=== PATIENT | female | born 1970 | race Caucasian/White ===

== ENCOUNTER 2024-06-07 18:11 | Emergency (ER) | payer MEDICAID ==
[~2024-06-07] VITALS: Ht 160 cm; Wt 46.8 kg
[2024-06-07] MEDS ORDERED: CEPH-585 PO (19:42)
[2024-06-07 19:56] VITALS: BP 146/81; PULSE 72; RESP 16; TEMP 97.6; O2SAT 98
== END 2024-06-07 19:58 | disposition home or self-care (01) ==
LOC: ER 18:12
DX: S90.822A Blister (nonthermal), left foot, initial encounter (principal); X58.XXXA Exposure to other specified factors, initial encounter; Y93.89 Activity, other specified; Y92.89 Other specified places as the place of occurrence of the external cause; Y99.8 Other external cause status
CPT/HCPCS: 99283

== ENCOUNTER 2025-03-21 13:53 | Inpatient (IN) | payer MEDICAID ==
[~2025-03-21] VITALS: Ht 160 cm; Wt 45.5 kg
--- NOTE | 2025-03-21 14:14 | Physician Documentation ---
History of Present Illness ~ Chief Complaint: Wound Stated Complaint: R FOOT PAIN Time Seen by MD: 14:57 HPI This 54-year-old female presents with a painful blister to the lateral aspect of her right foot and ankle as well as a wound to the posterior aspect of her right ankle, patient reports that it is been present for several days and getting larger. Patient reports the bottom of her foot has been hurting for the last week she believes she may have stepped on something a week ago. Patient reports no fevers. Patient reports that she has been sleeping a lot in the last two days as she is detoxing from methamphetamine. Medication Reconciliation Allergies: Coded Allergies: No Known Allergies (Unverified , 03/21/25) Review of Systems ROS Right foot pain and swelling as stated above in the HPI, otherwise all systems are reviewed and negative. Physical Exam Vital Signs: Temperature: 98.0, Source: Temporal, Heart Rate: 112, Respiratory Rate: 18, BP: 155/103, Pulse Oximetry: 100, Weight: 45.450 Physical Exam VITALS: Reviewed and as above. GENERAL: Alert, nontoxic appearing, no apparent distress. RESPIRATORY: No increased work of breathing, no respiratory distress, speaking in full clear sentences SKIN: Large bolus blister to the lateral aspect of right foot extending to the plantar heel EXTREMITIES: Foot is erythematous and swollen, blister is tender to palpation Progress Progress Note 1738: I spoke with hospitalist attending Dr. Acuna who kindly accepts patient for admission, Dr. Acuna requests a CT of the lower extremity be ordered and I contact on-call surgeon to make them aware should patient require surgical debridement 1744: I spoke with on-call orthopedist Dr. Stephens who was aware of patient and will consult with hospitalist in the morning Results/Orders Results/Orders Orders - DONALDO JOHNSTON Laceration/I&D Tray Set Up (03/21/25 15:45) Foot, Complete (3vw Min) (03/21/25 15:47) Culture Blood (03/21/25 16:08) Chest,Single View (03/21/25 16:08) Page Hospitalist (03/21/25 16:19) Fill Out Med Reconciliation (03/21/25 16:19) Ct Lower Extremity (03/21/25 19:05) Completed Orders - JEANNINE,DONALDO W [facility] Ketorolac Trometh 15mg/Ml Vial (Toradol (03/21/25 15:40) Tetanus/Pertuss/Diph Acell/Pf (Boostrix (03/21/25 15:45) Foot, Complete (3vw Min) (03/21/25 15:47) Cbc/Diff (03/21/25 15:47) BMP (03/21/25 15:47) Lidocaine 1% W/Epi 1:100,000 (Xylocaine (03/21/25 15:45) Electrocardiogram (03/21/25 16:08) Chest,Single View (03/21/25 16:08) Hcg, Ur Ql (03/21/25 16:08) Procalcitonin (03/21/25 16:08) Vancomycin*Pharmacy To Dose* (Vancomycin (03/21/25 16:10) Lacticsepsis (03/21/25 16:08) Ceftriaxone/M1z-Fscywlpv 1gm (Rocephin 1 (03/21/25 16:10) Vancomycin 1250mg/Ns 250ml Bag (Vancomyc (03/21/25 16:25) MG (03/21/25 16:12) Ct Lower Extremity (03/21/25 19:05) Lactic,2hr (03/21/25 18:03) Hgb A1c (03/21/25 16:12) PBNP (03/21/25 16:12) PHOS (03/21/25 16:12) Ua W/Microscopic, Cult If Ind (03/21/25 18:15) Medications Received in ER Medications (Trade) Dose Ordered Sig/Vipul Route PRN Reason Start Time Stop Time Status Last Admin Dose Admin (Dilaudid inj.) 0.5 mg Q4H PRN IV SEVERE PAIN 7-10 03/21/25 18:15 03/21/25 22:52 0.5 MG (Zofran 4mg/2ml vial) 4 mg Q6H PRN IV nausea/vomiting 03/21/25 18:15 03/21/25 18:47 4 MG (Benadryl inj.) 25 mg Q6H PRN IV itching 03/21/25 18:15 03/22/25 00:31 25 MG Potassium Chloride/Sodium Chloride 1,000 ml @ 100 mls/hr Q10H IV 03/21/25 18:15 03/21/25 18:55 100 MLS/HR (K-DUR tablet) 20 meq Q4H PRN PO Potassium 3.1-3.4 03/21/25 18:15 03/24/25 18:14 03/21/25 21:10 20 MEQ Vital Signs 03/21/25 03/21/25 14:05 15:48 Temp 98.0 Pulse 112 Resp 18 16 B/P (MAP) 155/103 Pulse Ox 100 Laboratory Tests Test 03/21/25 16:12 03/21/25 18:15 White Blood Count 10.8 Red Blood Count 5.09 Hemoglobin 14.0 Hematocrit 42.8 Mean Corpuscular Volume 84.1 Mean Corpuscular Hemoglobin 27.6 Mean Corpuscular Hemoglobin Concent 32.8 L Red Cell Distribution Width 13.8 Platelet Count 299 Mean Platelet Volume 7.7 Neutrophils (%) (Auto) 84.9 H Lymphocytes (%) (Auto) 9.5 L Monocytes (%) (Auto) 4.9 Eosinophils (%) (Auto) 0.5 Basophils (%) (Auto) 0.2 Neutrophils # (Auto) 9.2 H Lymphocytes # (Auto) 1.0 L Monocytes # (Auto) 0.5 Eosinophils # (Auto) 0.1 Basophils # (Auto) 0.0 CBC Comment Prothrombin Time 11.0 INR International Normalized Ratio 1.1 Activated Partial Thromboplast Time 26 Coagulation Comments Sodium Level 141 Potassium Level 3.2 L Chloride Level 102 Carbon Dioxide Level 28.6 Anion Gap 10 Blood Urea Nitrogen 11 Creatinine 0.83 Estimated GFR/1.73 m2 72 BUN/Creatinine Ratio 13.3 Glucose Level 132 H Hemoglobin A1c 5.6 Lactic Acid Level 3.4 H Calcium Level 8.8 Phosphorus Level 2.9 Magnesium Level 2.1 Pro-B-Type Natriuretic Peptide 185 H Albumin 2.8 L Procalcitonin < 0.05 Chemistry Comments Urine Specimen Description Cln catch midstream Urine Color Yellow Urine Clarity Turbid Urine pH 6.0 Urine Specific [place] >=1.030 Urine Protein 30 H Urine Glucose (UA) 100 H Urine Ketones Trace H Urine Occult Blood Moderate H Urine Nitrite Negative Urine Bilirubin Moderate Urine Urobilinogen >=8.0 H Urine Leukocyte Esterase Moderate H Urine RBC 3-10 Urine WBC 30-50 H Urine Squamous Epithelial Cells Few Urine Bacteria 4+ Urine Culture Indicated Indicated Volume Urine Centrifuged 10 ml Urine HCG, Qualitative Negative Urine Comment Urine Opiates Screen Negative Urine Methadone Screen Negative Urine Fentanyl Screen Negative Urine Barbiturates Screen Negative Urine Phencyclidine Screen Negative Urine Amphetamines Screen Positive Urine Benzodiazepines Screen Negative Urine Cocaine Screen Negative Urine Cannabinoids Screen Negative Drug Screen Comment Microbiology Date/Time Source Procedure Growth Status 03/21/25 17:22 Blood Arm Left Blood Culture - Preliminary NEGATIVE (LESS THAN 24 HOURS) Resulted EKG/XRAY/CT/US/VASC/MRI EKG : Additional Comment EKG at 16:33 interpreted by myself as sinus tachycardia at a rate of 101, left axis deviation, no ST segment elevation or depression Chest X-Ray : Additional Comments EXAM: DI CHEST,SINGLE VIEW HISTORY: SEPSIS COMPARISON: None TECHNIQUE: Portable upright AP view of the chest was performed. FINDINGS: No pneumothorax, consolidative infiltrates, or pulmonary edema. The heart is not enlarged. There is an old fracture of the right 6th rib. IMPRESSION: No acute intrathoracic process. Electronically Signed by:CHIQUI TONG MD Date & Time: 03/21/251635 Dictated by: CHIQUI TONG MD Dictation date and time: 03/21/251635 I have reviewed and agree with the radiology report. I have reviewed and interpreted the imaging as: No focal consolidation or pneumothorax Bone/Soft Tissue X-Ray (Ext.) : Additional Comment EXAM: DI FOOT, COMPLETE (3VW MIN) HISTORY: Wound to RT.Foot POSSIBLE FB COMPARISON: None TECHNIQUE: Three views of the right foot were performed. FINDINGS: No acute fracture or dislocation are identified about the right foot. Accessory navicular bone and Achilles insertion enthesophyte are incidentally noted. 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 There is soft tissue masslike lesion along the lateral margin of the midfoot and hindfoot, measuring 5.7 cm longitudinal on the AP film. There is a punctate round calcific density deep to the skin in the region of the masslike lesion. IMPRESSION: 1. No acute fracture of the right foot. 2. Soft tissue masslike lesion along the lateral margin of the right midfoot and hindfoot, etiology unknown. Electronically Signed by:CHIQUI TONG MD Date & Time: 03/21/251615 Dictated by: CHIQUI TONG MD Dictation date and time: 03/21/251615 I have reviewed and agree with the radiology report. I have reviewed and interpreted the imaging as: No radiopaque foreign body, no fracture or dislocation Medical Decision Making Findings This 54-year-old female presented with a bullous blister to her right lateral ankle extending into her plantar aspect of right heel that has been progressively worsening over the past 3-4 days, the entire right foot is eryt hematous and swollen consistent with cellulitis, patient was mildly tachycardic causing some concern for sepsis, given the large bullous nature of the wound I believe patient would benefit from admission for IV antibiotics. It is reassuring that the infection appears limited to the right foot patient has an otherwise benign physical exam. In discussion with hospitalist Dr. Acuna a CT of the lower extremity was ordered to evaluate for deep space infection, Dr. Bonilla kindly accepts patient for admission. On-call surgeon made aware of patient should wound require surgical debridement. At time of admission patient hemodynamically stable. Differential Dx:Considerations: Include: Abscess, Cellulitis, Other (Necrotizing fasciitis, osteomyelitis) Departure Disposition: 09 ADMITTED INPATIENT Admitted to Inpatient Unit: to hospitalist Impression: Primary Impression: Wound cellulitis Condition: Guarded Referrals: NO PRIMARY CARE PROVIDER (PCP) Additional Comment Medical Screen Exam History: This 54-year-old female presents with a painful blister to the lateral aspect of her right foot and ankle as well as a wound to the posterior aspect of her right ankle, patient reports that it is been present for several days and getting larger. Patient reports no fevers. Patient reports that she has been sleeping a lot in the last two days. Exam: VITALS: Reviewed and as above. GENERAL: Alert, nontoxic appearing, no apparent distress. RESPIRATORY: No increased work of breathing, no respiratory distress, speaking in full clear sentences SKIN: Large bolus blister to the lateral aspect of right foot, minimal surrounding erythema MSE performed in triage and patient returned to ED lobby by nursing staff to await available ED room, patient is otherwise well-appearing and hemodynamically stable appropriate to wait and lobby. The note accurately reflects work and decisions made by me.FRED Varma 03/21/25 14:14 Signature Scribe Signature: No scribe Attestation: The note accurately reflects work and decisions made by me.Donaldo Johnston [facility] 03/22/25 01:11 DONALDO JOHNSTON [facility] Mar 21, 2025 14:14
[2025-03-21] MEDS: ketorolac trometh 15mg/ml vial 15 MG/ML ML IM ONE (15:48)
--- NOTE | 2025-03-21 16:19 | RADIOLOGY REPORT ---
EXAM: DI FOOT, COMPLETE (3VW MIN) HISTORY: Wound to RT.Foot POSSIBLE FB COMPARISON: None TECHNIQUE: Three views of the right foot were performed. FINDINGS: No acute fracture or dislocation are identified about the right foot. Accessory navicular bone and Ac hilles insertion enthesophyte are incidentally noted. There is congenital fusion of the middle and d istal phalanges of the 5th toe. There is soft tissue masslike lesion along the lateral margin of the midfoot and hindfoot, measuring 5.7 cm longitudinal on the AP film. There is a punctate round calcifi c density deep to the skin in the region of the masslike lesion. IMPRESSION: 1. No acute fracture of the right foot. 2. Soft tissue masslike lesion along the lateral margin of the right midfoot and hindfoot, etiology u nknown.
[2025-03-21 16:21] LABS: BASOPHILS % (AUTO) 0.2 % (0-1); EOSINOPHILS # (AUTO) 0.1 X10'3 (0-0.9); EOSINOPHILS % (AUTO) 0.5 % (0-6); HEMATOCRIT 42.8 % (35.0-45.0); LYMPHOCYTES % (AUTO) 9.5 % (21-51); MEAN CORPUSCULAR HEMOGLOBIN 27.6 PG (27.0-31.0); MEAN CORPUSCULAR HGB CONC 32.8 g/dL (33.0-36.5); MEAN CORPUSCULAR VOLUME 84.1 FL (78-98); MEAN PLATELET VOLUME 7.7 FL (7.4-10.4); MONOCYTES # (AUTO) 0.5 X10'3 (0-0.9); MONOCYTES % (AUTO) 4.9 % (2-12); NEUTROPHILS # (AUTO) 9.2 X10'3 (1.8-7.7); NEUTROPHILS % (AUTO) 84.9 % (42-75); PLATELET COUNT 299 X10'3 (140-440); RED BLOOD COUNT 5.09 X10'6 (4.20-5.60); RED CELL DISTRIBUTION WIDTH 13.8 % (11.5-14.5); WHITE BLOOD COUNT 10.8 X10'3 (4.5-11.0)
[2025-03-21 16:30] LABS: ALBUMIN 2.8 G/DL (3.4-5.0); ANION GAP 10 (8-16); BLOOD UREA NITROGEN 11 MG/DL (7-18); BUN/CREATININE RATIO 13.3 (10.0-20.0); CALCIUM 8.8 MG/DL (8.5-10.1); CHLORIDE 102 MMOL/L (99-107); CREATININE 0.83 MG/DL (0.40-0.90); GLUCOSE 132 MG/DL (70-104); POTASSIUM 3.2 MMOL/L (3.5-5.1); SODIUM 141 MMOL/L (135-145); TOTAL CARBON DIOXIDE 28.6 MMOL/L (24-32); eCRCL 56 ML/MIN; eGFR 72 ML/MIN
[2025-03-21] MEDS: LIDOcaine 1% W/epiNEPHrine 1:100,000 20ml vial IJ ONE (16:33)
[2025-03-21] MEDS: TETanus/Pertussis (Acell)/Diphther VAC/PF (Tdap-Adult) 0.5ml syringe IMVAC ONE (16:36)
--- NOTE | 2025-03-21 16:38 | ELECTROCARDIOGRAPH REPORT ---
[facility] Test Date: 2025-03-21 Test Time: 16:33:55 Pat Name: OSMAN LAMAR Department: [facility]: [id number] Room: [place] [address] Gender: F Allied Health Professional: : 1970 Requested By: LISA PAEZ Order Number: [id number] Reading MD: Dr. Danny Vargas Measurements Intervals Sacul Rate: 101 P: 58 WA: 117 QRS: -22 QRSD: 85 T: 63 QT: 333 QTc: 432 Interpretive Statements Sinus tachycardia Ventricular premature complex Aberrant conduction of SV complex(es) Probable left atrial enlargement Borderline left axis deviation Electronically Signed On 03-31-2025 18:43:[address] Danny Vargas Please click the below link to view image of tracing.
--- NOTE | 2025-03-21 16:39 | RADIOLOGY REPORT ---
EXAM: DI CHEST,SINGLE VIEW HISTORY: SEPSIS COMPARISON: None TECHNIQUE: Portable upright AP view of the chest was performed. FINDINGS: No pneumothorax, consolidative infiltrates, or pulmonary edema. The heart is not enlarged. There is a n old fracture of the right 6th rib. IMPRESSION: No acute intrathoracic process.
[2025-03-21 16:55] LABS: MAGNESIUM 2.1 MG/DL (1.5-2.4)
[2025-03-21] MEDS: VANCOmycin 1250MG/NS 250ml Bag 250 ML IV ONE (17:07)
[2025-03-21] MEDS: CefTRIAXone/D5W-Rocephin 1gm 50 ML IV ONE (17:08)
--- NOTE | 2025-03-21 18:14 | HISTORY AND PHYSICAL ---
History & Physical Providers to CC ~ chief complaint, right foot right ankle pain swelling redness blistering History of Present Illness Reason for Admit\Complaint: As above History of Present Illness This 54-year-old female , with history of multiple medical problems including hypertension, chronic amphetamine and tobacco abuse including currently, malnutrition BMI 17, UTI, dehydration associated with ketonuria, presented today to emergency department chief complaint a right foot and right ankle redness swelling blistering; in addition this is the patient who presents with a painful blister to the lateral aspect of her right foot and ankle as well as a wound to the posterior aspect of her right ankle, patient reports that it is been present for several days and getting larger. Patient reports the bottom of her foot has been hurting for the last week she believes she may have stepped on something a week ago. Patient reports no fevers. Patient reports that she has been sleeping a lot in the last two days as she is detoxing from methamphetamine. In emergency department patient was evaluated medical provider, was diagnosed with cellulitis, sepsis, right foot ankle and lower leg, and decision was made to admit patient for further evaluation and treatment. No additional complaint or concern. Allergies: Coded Allergies: No Known Allergies (Unverified , 03/21/25) Active prescriptions I reviewed reconciled Home Medications Home Medications Active Past Medical History Past Medical History As in HPI Past Surgical History Surgical History Comment As in HPI Past Social History Social History Comment Positive for chronic amphetamine and tobacco abuse including currently, deny illicit other drugs or alcohol , homeless Health Maintenance Health Maintenance Non ROS ROS Constitutional : no fever , no chills, or weakness. No diaphoresis. Allergic/Immunologic, no lymphadenopathy, no hives, no skin eruptions. Eyes, no recent visual changes, no eye pain, no photophobia. Ears, nose, mouth, throat, no sore throat, no nosebleed, no ear pain. Cardiovascular, no palpitations, skipped beats, chest pain, no peripheral edema, Respiratory, no dyspnea, orthopnea, cough, hemoptysis, chest wall pain. Gastrointestinal, no abdominal pain, nausea, vomiting, constipation or diarrhea. Endocrine, no polyuria, polydipsia, recent unintentional weight gain or loss. Hematologic/Lymphatic, no petechiae, no enlarged lymph nodes, no bone pain. Integumentary, no rash, no skin lesions, Musculoskeletal, no muscle aches, or pain, no muscle cramps, no recent change in gait, positive for right leg swelling in the foot and ankle and lower leg associated with blistering redness tender to palpation Neurological, no dizziness, no headache, no syncope, no paresthesia. Psychiatric, no delusions, visual hallucinations, or hearing hallucinations. ROS - in rest is as in HPI. Exam Vitals: Vital Signs Date Time Temp Pulse Resp B/P (MAP) Pulse Ox O2 Delivery O2 Flow Rate FiO2 03/21/25 15:48 16 03/21/25 14:05 98.0 112 155/103 100 Vital signs, stable ,afebrile. Pulse Oximetry reflects adequate oxygenation. BMI is 17, weight 45 kg General: well developed, well nourished. Awake , alert, and oriented x4, resting comfortably in the bed, in no acute distress . Skin: Warm, dry, no pallor, no rash or petechiae. HEENT: Atraumatic, normocephalic, EOMI, anicteric sclera B; pink conjunctiva; PERRLA, normal oropharynx, moist oral and nasal mucosa. Tympanic membrane , nose , throat clear. Neck: Trachea midline. Supple, full range of motion, no JVD, bruit , hepatojugular reflex , lymphadenopathy or masses, or other lesions Cardiac: Regular rhythm, regular rate no murmurs, rubs, or gallops. Normal S1 and S2, no S3 noticed. PMI is normal. Respiratory: Equal breath sounds bilaterally, no tachypnea; lungs clear to auscultation bilaterally, no wheezing ,rub or rales, or crackles. Chest wall is symmetric and without deformity. No signs of trauma. Chest wall is nontender. No signs of respiratory distress. Resonance is normal upon percussion bilaterally. Gastrointestinal: Abdomen symmetric, non-distended, soft, non-tender, normal bowel sounds x4 quadrant, normoactive, no hepatosplenomegaly , no masses , no bruit, no flank pain bilaterally. No voluntary guarding, rebound, or rigidity. No tenderness to percussion. No pulsatile masses. Equal femoral pulses. No Livingston's sign or McBurney point tenderness. Back; no CVA tenderness bilaterally, no deformities. Neck and back are without deformity as well. No tenderness noted on palpation of the spinous processes. Spinous processes are midline. Cervical, thoracic, and lumbar paraspinal muscles are not tender and are without spasm. : normal external genitalia, without lesions, swelling, masses or tenderness. Musculoskeletal: Extremities, normal range of motion, non-tender, muscle strength 5/5 x 4. Negative Homans signs bilaterally on lower extremity. Distal pulses full symmetrical, no clubbing, cyanosis , Locally, right lower leg distally ankle and foot plus four edema tender to palpation no crepitation associated blistering neurovascular grossly intact, Neurological: Speech is clear, alert, and oriented x 4. No motor or sensory deficit, deep tendon reflexes normal, cerebellar intact. Cranial nerves II-XII intact. Psych: Alert and or appropriate, normal affect. Vascular: Good distal pulses, which are equal x4; capillary refill less than 2 seconds. Lymphatic, no lymphadenopathy. Diagnostic Data Last Recorded Lab Results: 03/21/25 1612 03/21/25 1612 Advance Care Planning Advanced Care plannin - 30 Minutes Additional Plan Assessment A right foot cellulitis A right ankle cellulitis A right distal lower leg cellulitis A right distal lower leg blistering dermatitis Hypokalemia UTI Sepsis Chronic amphetamine abuse including currently Malnutrition BMI 17 Dehydration associated with Ketonuria Hypertension fair control Homelessness Plan IV fluids antibiotics Replace electrolytes Consulted for 5 minutes to stop using tobacco patient agrees started to nicotine patch Substance abuse navigator consult Wound care consult Nutrition consult Additional lab work pending I reconciled home medications DVT gastropathy prophylaxis addressed CT of the right lower leg pending May need orthopedic doctor or [employer] consultation Tdap was updated in ER Sepsis Screening Reassessment Date: Mar 21, 2025 Date of Service: Mar 21, 2025 Billing Provider: JOSÉ GOMEZ MD Common Visit Codes: 41647-GBZSCFI INP/OBS CARE (HIGH) Secondary Visit Codes: 12753-CTGSG CHNG SMOKING 3-10M, 29792-[id number] CARE PLAN 30 MINUTES JOSÉ GOMEZ MD Mar 21, 2025 18:13
[2025-03-21] MEDS ORDERED: acetaminophen 325mg tablet PO PRN ×2 (18:15)
[2025-03-21] MEDS ORDERED: metoclopramide 5 mg/ml inj IV PRN (18:15)
[2025-03-21] MEDS ORDERED: acetaminophen 650mg rectal suppository RC PRN (18:15)
[2025-03-21] MEDS ORDERED: HYDROcodone/acetaminophen 5mg/325mg tablet PO PRN (18:15)
[2025-03-21] MEDS ORDERED: potassium Cl 20 mEq SR tablet PO PRN (18:15)
[2025-03-21] MEDS ORDERED: mag hydrox/Alum hydrox/simeth 30ml oral suspension PO PRN (18:15)
[2025-03-21] MEDS ORDERED: morphine 2 MG/ML inj. syringe IV PRN ×2 (18:15)
[2025-03-21] MEDS ORDERED: bisacodyl 10mg suppository rectal RC PRN (18:15)
[2025-03-21] MEDS ORDERED: ondansetron 4mg rapidly disintigrating tab PO PRN (18:15)
[2025-03-21] MEDS ORDERED: potassium Cl 40MEQ/1/2NS 520ml 520 ML IV PRN (18:15)
[2025-03-21] MEDS ORDERED: iohexol 300mg/ml 100ml inj. ONE (18:42)
[2025-03-21] MEDS: ondansetron/PF 4mg/2ml inj IV PRN (18:47)
[2025-03-21] MEDS: HYDROmorphone inj. 0.5 MG/0.5 ML DISP.SYRIN IV PRN (18:48)
[2025-03-21 18:49] LABS: BILIRUBIN,URINE MODERATE (Neg); CLARITY,URINE TURBID (Clear); COLOR,URINE YELLOW (Yellow); GLUCOSE, URINE 100 mg/dl (Neg); KETONES,URINE TRACE mg/dl (Neg); LEUKOCYTE ESTERASE ,URINE MODERATE (Neg); NITRITES, URINE NEGATIVE (Neg); OCCULT BLOOD,URINE MODERATE (Neg); PROTEIN,URINE 30 mg/dl (Neg); UROBILINOGEN,URINE >=8.0 E.U/dL (0.2-1.0)
[2025-03-21 18:52] LABS: URINE HCG NEGATIVE (NEG)
[2025-03-21] MEDS: diphenhydrAMINE 50 mg/ml inj IV PRN (18:53)
[2025-03-21] MEDS: potassium Cl 20mEq in NS 1,000 ML IV SCH (18:55)
[2025-03-21 19:00] LABS: UA COLLECTION TYPE CLN CATCH MIDSTREAM
[2025-03-21 19:02] LABS: APTT 26 SECONDS (22-32); INR 1.1 INR
[2025-03-21 19:02] LABS: BACTERIA,URINE 4+ /HPF (Neg); SQUAMOUS EPITHELIAL CELL,UR FEW /LPF (FEW); WBC,URINE 30-50 /HPF (0-4)
[2025-03-21 19:03] LABS: HEMOGLOBIN A1C 5.6 % (4.5-6.2)
[2025-03-21 19:09] LABS: PHOSPHORUS 2.9 MG/DL (2.3-4.5); PRO BRAIN NATRIURETIC PEPTIDE 185 PG/ML (0-125)
[2025-03-21 19:12] LABS: URINE AMPHETAMINE SCREEN POSITIVE (Neg); URINE BARBITUATE SCREEN NEGATIVE (Neg); URINE BENZODIAZEPINES SCREEN NEGATIVE (Neg); URINE CANNABINOID SCREEN NEGATIVE (Neg); URINE COCAINE SCREEN NEGATIVE (Neg); URINE METHADONE SCREEN NEGATIVE (Neg); URINE OPIATE SCREEN NEGATIVE (Neg); URINE PHENCYCLIDINE SCREEN NEGATIVE (Neg)
[2025-03-21] MEDS: vancomycin/NS 1 GM ADD-VANTAGE 250 ML IV SCH (19:36)
--- NOTE | 2025-03-21 19:58 | RADIOLOGY REPORT ---
COMPUTERIZED TOMOGRAPHY RIGHT LOWER EXTREMITY WITH CONTRAST REASON FOR EXAM: Foot Pain and Swelling. Painful blister at the lateral aspect of the right foot and ankle and wound at the posterior right ankle present for several days and enlarging. Patient reports bottom of the foot has been hurting for a week since she might have stepped on something. COMPARISON: None TECHNIQUE: The exam was performed on a Multidetector scanner. Spiral scans were acquired from the dis mojgan lower leg through the toes after administration of omnipaque 300 contrast. Images were constructe d with a slice thickness of 5 mm. 2-D coronal and sagittal reformatted images were provided. Automate d exposure control was used. CONTRAST ADMINISTRATION: 100 mL omnipaque 300 intravenously RADIATION DOSE: CTDI: 8 mGy DLP: 250 mGy-cm FINDINGS: There is a large skin blister extending from the lateral aspect of the hindfoot to the plantar surfac e of the hindfoot. There is diffuse skin thickening of the lateral ankle and the plantar surface of t he hindfoot and midfoot. There is diffuse subcutaneous fat stranding , greatest about the lateral mal leolus. No subcutaneous gas or fluid collection is identified. No muscular abnormality is identified. There is no joint effusion identified. No fracture is identified. No osseous erosion is identified t o suggest osteomyelitis. No foreign body is identified. IMPRESSION: Diffuse subcutaneous edema, greatest about the lateral malleolus. Large blister on the skin extending from the lateral ankle to the plantar surface of the hindfoot. No foreign body is identified. No abs cess or subcutaneous gas is identified. No evidence of osteomyelitis.
[2025-03-21] MEDS: K and/or MAG REPLACEMENT MC SCH (20:00)
[2025-03-21] MEDS: docusate sod 100mg capsule PO SCH (20:00)
[2025-03-21] MEDS: potassium Cl 20 mEq SR tablet PO PRN (21:10)
[2025-03-21 22:48] VITALS: BP 150/101; PULSE 93; RESP 17; TEMP 98.7; O2SAT 99
[2025-03-22] MEDS: nicotine 14mg patch - 24hr TD SCH (00:27)
[2025-03-22] MEDS: temazepam 15mg capsule PO PRN (00:32)
[2025-03-22 04:43] LABS: BASOPHILS % (AUTO) 0.4 % (0-1); EOSINOPHILS # (AUTO) 0.2 X10'3 (0-0.9); EOSINOPHILS % (AUTO) 1.8 % (0-6); HEMATOCRIT 38.9 % (35.0-45.0); LYMPHOCYTES # (AUTO) 1.5 X10'3 (1.1-4.8); LYMPHOCYTES % (AUTO) 13.7 % (21-51); MEAN CORPUSCULAR HGB CONC 33.3 g/dL (33.0-36.5); MEAN PLATELET VOLUME 8.3 FL (7.4-10.4); MONOCYTES # (AUTO) 0.8 X10'3 (0-0.9); NEUTROPHILS # (AUTO) 8.4 X10'3 (1.8-7.7); NEUTROPHILS % (AUTO) 77.1 % (42-75); PLATELET COUNT 306 X10'3 (140-440); RED BLOOD COUNT 4.63 X10'6 (4.20-5.60); RED CELL DISTRIBUTION WIDTH 13.7 % (11.5-14.5); WHITE BLOOD COUNT 10.9 X10'3 (4.5-11.0)
[2025-03-22 05:09] LABS: ALANINE AMINOTRANSFERASE 18 U/L (12-78); ALBUMIN 2.6 G/DL (3.4-5.0); ALBUMIN/GLOBULIN RATIO 0.7 (1.1-1.5); ALKALINE PHOSPHATASE 109 IU/L (46-116); ANION GAP 1 (8-16); ASPARTATE AMINO TRANSFERASE 12 U/L (10-37); BILIRUBIN,TOTAL 0.2 MG/DL (0.1-1.0); BLOOD UREA NITROGEN 17 MG/DL (7-18); BUN/CREATININE RATIO 22.1 (10.0-20.0); CALCIUM 8.3 MG/DL (8.5-10.1); CHLORIDE 107 MMOL/L (99-107); CHOL/HDL RATIO 3.2 (0.00-4.99); CHOLESTEROL 122 MG/DL (0-200); CREATININE 0.77 MG/DL (0.40-0.90); GLUCOSE 105 MG/DL (70-104); HDL CHOLESTEROL 38 MG/DL (35-60); LDL CHOLESTEROL 65 MG/DL (50-100); POTASSIUM 4.1 MMOL/L (3.5-5.1); SODIUM 140 MMOL/L (135-145); TOTAL CARBON DIOXIDE 31.7 MMOL/L (24-32); TOTAL PROTEIN 6.4 G/DL (6.4-8.2); TRIGLYCERIDES 47 MG/DL (20-135); eCRCL 61 ML/MIN; eGFR 78 ML/MIN
[2025-03-22 06:00] VITALS: BP 163/114; PULSE 90; RESP 12; TEMP 97; O2SAT 100
--- NOTE | 2025-03-22 08:12 | CONSULTATION REPORT ---
History of Present Illness Providers to CC ~ Reason for Admit\Admit Dx: r foot infection Refering MD: Dr Acuna History of Present Illness 54 yo admitted with r foot redness and swelling, imaging showed no osteo, but a large blister laterally,C/O pain in the foot, not the ankle Allergies: Coded Allergies: No Known Allergies (Unverified , 03/21/25) Home Medications Home Medications Active Past Family History Family History: Patient reports no known family medical history. Physical Exam Last Vital Signs Recorded: Temperature: 98.7, Source: Oral, Heart Rate: 93, Respiratory Rate: 16, BP: 150/101, Pulse Oximetry: 99, Weight: 45.450 Extremities large lateral blister, some mild erythema about the lateral foot, ankle and leg exam normal Results Diagram Lab Result Diagram: 03/22/25 0423 03/22/25 0423 Assessment/Plan Problems/Diagnosis: (1) Cellulitis Additional Plan iv abx, do not see a surgical intervention necessary Problem Qualifiers (1) Cellulitis: HUONG SMITH Jr., MD Mar 22, 2025 08:12
[2025-03-22] MEDS: CefTRIAXone/D5W-Rocephin 1gm 50 ML IV SCH (08:32)
[2025-03-22] MEDS: pantoprazole 40mg Tablet.DR PO SCH (08:32)
[2025-03-22 10:00] VITALS: BP 150/103; PULSE 96; RESP 16; TEMP 98.6; O2SAT 99
[2025-03-22] MEDS: HYDROcodone/acetaminophen 10/325mg tab PO PRN (14:28)
[2025-03-22 18:00] VITALS: BP 161/107; PULSE 92; RESP 16; TEMP 97.7; O2SAT 97
[2025-03-22] MEDS: diphenhydrAMINE 25mg capsule PO PRN (18:06)
[2025-03-22] MEDS: LORazepam 2 mg/ml vial IV PRN (18:07)
[2025-03-22] MEDS: lactose-reduced food (Ensure Enlive) - 237ml bottle PO SCH (18:08)
--- NOTE | 2025-03-22 19:16 | PROGRESS NOTE ---
Daily Progress Note Providers to CC ~ chief complaint, right foot ankle lower leg pain, improving Central Line/PICC still needed: No Dee-Non Protocol Dee Indications Met/Not Met: F/C Indications Not Met Antibiotic Timeout Antibiotic Ordered?: Yes MRSA Education MRSA Education Provided to pt: Yes Subjective As above Objective Vital Signs Date Time Temp Pulse Resp B/P (MAP) Pulse Ox O2 Delivery O2 Flow Rate FiO2 03/22/25 15:42 14 03/22/25 11:20 Room Air 03/22/25 10:00 98.6 96 150/103 (119) 99 Vital signs, stable ,afebrile. Pulse Oximetry reflects adequate oxygenation. General: well developed, well nourished. Awake , alert, and oriented x4, resting comfortably in the bed, in no acute distress . Skin: Warm, dry, no pallor, no rash or petechiae. HEENT: Atraumatic, normocephalic, EOMI, anicteric sclera B; pink conjunctiva; PERRLA, normal oropharynx, moist oral and nasal mucosa. Tympanic membrane , nose , throat clear. Neck: Trachea midline. Supple, full range of motion, no JVD, bruit , hepatojugular reflex , lymphadenopathy or masses, or other lesions Cardiac: Regular rhythm, regular rate no murmurs, rubs, or gallops. Normal S1 and S2, no S3 noticed. PMI is normal. Respiratory: Equal breath sounds bilaterally, no tachypnea; lungs clear to auscultation bilaterally, no wheezing ,rub or rales, or crackles. Chest wall is symmetric and without deformity. No signs of trauma. Chest wall is nontender. No signs of respiratory distress. Resonance is normal upon percussion bilaterally. Gastrointestinal: Abdomen symmetric, non-distended, soft, non-tender, normal bowel sounds x4 quadrant, normoactive, no hepatosplenomegaly , no masses , no bruit, no flank pain bilaterally. No voluntary guarding, rebound, or rigidity. No tenderness to percussion. No pulsatile masses. Equal femoral pulses. No Livingston's sign or McBurney point tenderness. Back; no CVA tenderness bilaterally, no deformities. Neck and back are without deformity as well. No tenderness noted on palpation of the spinous processes. Spinous processes are midline. Cervical, thoracic, and lumbar paraspinal muscles are not tender and are without spasm. Locally, right foot ankle and lower leg, redness improvement swelling improving mild tender to palpation, neurovascular grossly intact Musculoskeletal: Extremities, normal range of motion, non-tender, muscle strength 5/5 x 4. Negative Homans signs bilaterally on lower extremity. Distal pulses full symmetrical, no clubbing, cyanosis , edema. Neurological: Speech is clear, alert, and oriented x 4. No motor or sensory deficit, deep tendon reflexes normal, cerebellar intact. Cranial nerves II-XII intact. Psych: Alert and or appropriate, normal affect. Vascular: Good distal pulses, which are equal x4; capillary refill less than 2 seconds. Lymphatic, no lymphadenopathy. Result Diagram: 03/22/25 0423 03/22/25 0423 Coagulation Studies Laboratory Tests Test 03/21/25 16:12 Prothrombin Time 11.0 SECONDS (9.0-12.0) INR International Normalized Ratio 1.1 INR Activated Partial Thromboplast Time 26 SECONDS (22-32) Coagulation Comments Problem\Assessment\Plan Assessment A right foot cellulitis A right ankle cellulitis A right distal lower leg cellulitis A right distal lower leg blistering dermatitis Hypokalemia UTI Sepsis Chronic amphetamine abuse including currently Malnutrition BMI 17 Dehydration associated with Ketonuria Hypertension fair control Homelessness Plan IV fluids antibiotics Replace electrolytes Consulted for 5 minutes to stop using tobacco patient agrees started to nicotine patch Substance abuse navigator consult Wound care consult Nutrition consult Additional lab work pending I reconciled home medications DVT gastropathy prophylaxis addressed CT of the right lower leg pending May need orthopedic doctor or grounds maintenance worker consultation Tdap was updated in ER Sepsis Screening Reassessment Date: Mar 22, 2025 Date of Service: Mar 22, 2025 Billing Provider: JOSÉ GOMEZ MD Common Visit Codes: [id number] INP/OBS CARE(HIGH) JOSÉ GOMEZ MD Mar 22, 2025 19:16
[2025-03-22 20:00] VITALS: RESP 16; O2SAT 97
[2025-03-22 22:00] VITALS: BP 153/99; PULSE 87; RESP 16; TEMP 98.9; O2SAT 100
[2025-03-23 06:00] VITALS: BP 165/69; PULSE 75; RESP 14; TEMP 98.7; O2SAT 95
[2025-03-23 06:24] LABS: BASOPHILS # (AUTO) 0.1 X10'3 (0-0.2); BASOPHILS % (AUTO) 0.6 % (0-1); EOSINOPHILS # (AUTO) 0.4 X10'3 (0-0.9); EOSINOPHILS % (AUTO) 3.5 % (0-6); HEMATOCRIT 39.1 % (35.0-45.0); LYMPHOCYTES # (AUTO) 2.3 X10'3 (1.1-4.8); LYMPHOCYTES % (AUTO) 22.2 % (21-51); MEAN CORPUSCULAR HEMOGLOBIN 28.1 PG (27.0-31.0); MEAN CORPUSCULAR HGB CONC 33.3 g/dL (33.0-36.5); MEAN CORPUSCULAR VOLUME 84.3 FL (78-98); MEAN PLATELET VOLUME 8.2 FL (7.4-10.4); MONOCYTES # (AUTO) 0.7 X10'3 (0-0.9); MONOCYTES % (AUTO) 6.8 % (2-12); NEUTROPHILS # (AUTO) 6.9 X10'3 (1.8-7.7); NEUTROPHILS % (AUTO) 66.9 % (42-75); PLATELET COUNT 291 X10'3 (140-440); RED BLOOD COUNT 4.64 X10'6 (4.20-5.60); RED CELL DISTRIBUTION WIDTH 14.1 % (11.5-14.5); WHITE BLOOD COUNT 10.4 X10'3 (4.5-11.0)
[2025-03-23 06:36] LABS: ALANINE AMINOTRANSFERASE 28 U/L (12-78); ALBUMIN 2.4 G/DL (3.4-5.0); ALBUMIN/GLOBULIN RATIO 0.6 (1.1-1.5); ALKALINE PHOSPHATASE 106 IU/L (46-116); ANION GAP 7 (8-16); ASPARTATE AMINO TRANSFERASE 23 U/L (10-37); BILIRUBIN,TOTAL 0.3 MG/DL (0.1-1.0); BLOOD UREA NITROGEN 8 MG/DL (7-18); BUN/CREATININE RATIO 14.8 (10.0-20.0); CALCIUM 8.6 MG/DL (8.5-10.1); CHLORIDE 103 MMOL/L (99-107); CREATININE 0.54 MG/DL (0.40-0.90); GLUCOSE 97 MG/DL (70-104); MAGNESIUM 1.8 MG/DL (1.5-2.4); POTASSIUM 4.4 MMOL/L (3.5-5.1); SODIUM 135 MMOL/L (135-145); TOTAL PROTEIN 6.2 G/DL (6.4-8.2); VANCOMYCIN,TROUGH 8.7 ug/mL (10.0-20.0); eCRCL 86 ML/MIN; eGFR > 90 ML/MIN
[2025-03-23] MEDS ORDERED: vancomycin/NS 1 GM ADD-VANTAGE 250 ML IV SCH (08:00)
[2025-03-23] MEDS: VANCOmycin 1250MG/NS 250ml Bag 250 ML IV SCH (08:49)
[2025-03-23 10:00] VITALS: BP 141/107; PULSE 95; RESP 22; TEMP 97; O2SAT 99
[2025-03-23] MEDS: nicotine 21mg patch - 24 hr TD ONE (12:53)
--- NOTE | 2025-03-23 16:55 | PROGRESS NOTE ---
Daily Progress Note Providers to CC Feels better today, less pain in the right foot ~ Central Line/PICC still needed: No Dee-Non Protocol Dee Indications Met/Not Met: F/C Indications Not Met Antibiotic Timeout Antibiotic Ordered?: Yes MRSA Education MRSA Education Provided to pt: Yes Subjective As above Objective Vital Signs Date Time Temp Pulse Resp B/P (MAP) Pulse Ox O2 Delivery O2 Flow Rate FiO2 03/23/25 10:00 97.0 95 22 141/107 (118) 99 Room Air Vital signs, stable ,afebrile. Pulse Oximetry reflects adequate oxygenation. BMI is General: well developed, well nourished. Awake , alert, and oriented x4, resting comfortably in the bed, in no acute distress . Skin: Warm, dry, no pallor, no rash or petechiae. HEENT: Atraumatic, normocephalic, EOMI, anicteric sclera B; pink conjunctiva; PERRLA, normal oropharynx, moist oral and nasal mucosa. Tympanic membrane , nose , throat clear. Neck: Trachea midline. Supple, full range of motion, no JVD, bruit , hepatojugular reflex , lymphadenopathy or masses, or other lesions Cardiac: Regular rhythm, regular rate no murmurs, rubs, or gallops. Normal S1 and S2, no S3 noticed. PMI is normal. Respiratory: Equal breath sounds bilaterally, no tachypnea; lungs clear to auscultation bilaterally, no wheezing ,rub or rales, or crackles. Chest wall is symmetric and without deformity. No signs of trauma. Chest wall is nontender. No signs of respiratory distress. Resonance is normal upon percussion bilaterally. Gastrointestinal: Abdomen symmetric, non-distended, soft, non-tender, normal bowel sounds x4 quadrant, normoactive, no hepatosplenomegaly , no masses , no bruit, no flank pain bilaterally. No voluntary guarding, rebound, or rigidity. No tenderness to percussion. No pulsatile masses. Equal femoral pulses. No Livingston's sign or McBurney point tenderness. Back; no CVA tenderness bilaterally, no deformities. Neck and back are without deformity as well. No tenderness noted on palpation of the spinous processes. Spinous processes are midline. Cervical, thoracic, and lumbar paraspinal muscles are not tender and are without spasm. Locally, a right foot dressing clean dry intact, neurologically grossly intact Musculoskeletal: Extremities, normal range of motion, non-tender, muscle strength 5/5 x 4. Negative Homans signs bilaterally on lower extremity. Distal pulses full symmetrical, no clubbing, cyanosis , edema. Neurological: Speech is clear, alert, and oriented x 4. No motor or sensory deficit, deep tendon reflexes normal, cerebellar intact. Cranial nerves II-XII intact. Psych: Alert and or appropriate, normal affect. Vascular: Good distal pulses, which are equal x4; capillary refill less than 2 seconds. Lymphatic, no lymphadenopathy. Result Diagram: 03/23/25 0609 03/23/25 0609 Coagulation Studies Laboratory Tests Test 03/21/25 16:12 Prothrombin Time 11.0 SECONDS (9.0-12.0) INR International Normalized Ratio 1.1 INR Activated Partial Thromboplast Time 26 SECONDS (22-32) Coagulation Comments Problem\Assessment\Plan Assessment A right foot cellulitis A right ankle cellulitis A right distal lower leg cellulitis A right distal lower leg blistering dermatitis Hypokalemia UTI Sepsis Chronic amphetamine abuse including currently Malnutrition BMI 17 Dehydration associated with Ketonuria Hypertension fair control Homelessness Plan IV fluids antibiotics Replace electrolytes Consulted for 5 minutes to stop using tobacco patient agrees started to nicotine patch Substance abuse navigator consult Wound care consult Nutrition consult Additional lab work pending I reconciled home medications DVT gastropathy prophylaxis addressed CT of the right lower leg pending May need orthopedic doctor or engagement manager consultation Tdap was updated in ER Sepsis Screening Reassessment Date: Mar 23, 2025 Date of Service: Mar 23, 2025 Billing Provider: JOSÉ GOMEZ MD Common Visit Codes: [id number] INP/OBS CARE(HIGH) JOSÉ GOMEZ MD Mar 23, 2025 16:55
[2025-03-23] MEDS: LORazepam 1 MG tablet PO SCH (17:06)
[2025-03-23 18:00] VITALS: BP 138/103; PULSE 94; RESP 21; TEMP 98; O2SAT 100
[2025-03-23] MEDS: magnesium hydroxide 30ml (MOM) UD suspension PO PRN (19:10)
[2025-03-23 20:00] VITALS: RESP 16; O2SAT 97
[2025-03-23 21:45] VITALS: BP 125/78; PULSE 95; RESP 16; TEMP 98.9; O2SAT 97
[2025-03-24 05:43] LABS: BASOPHILS # (AUTO) 0.1 X10'3 (0-0.2); BASOPHILS % (AUTO) 1.1 % (0-1); EOSINOPHILS # (AUTO) 0.3 X10'3 (0-0.9); EOSINOPHILS % (AUTO) 3.2 % (0-6); HEMATOCRIT 38.1 % (35.0-45.0); HEMOGLOBIN 12.6 g/dl (12.0-16.0); LYMPHOCYTES % (AUTO) 23.1 % (21-51); MEAN CORPUSCULAR HEMOGLOBIN 27.6 PG (27.0-31.0); MEAN CORPUSCULAR HGB CONC 33.2 g/dL (33.0-36.5); MEAN CORPUSCULAR VOLUME 83.3 FL (78-98); MEAN PLATELET VOLUME 8.6 FL (7.4-10.4); MONOCYTES # (AUTO) 0.6 X10'3 (0-0.9); MONOCYTES % (AUTO) 6.6 % (2-12); NEUTROPHILS # (AUTO) 5.7 X10'3 (1.8-7.7); PLATELET COUNT 310 X10'3 (140-440); RED BLOOD COUNT 4.58 X10'6 (4.20-5.60); RED CELL DISTRIBUTION WIDTH 13.9 % (11.5-14.5); WHITE BLOOD COUNT 8.6 X10'3 (4.5-11.0)
[2025-03-24 05:54] LABS: ALANINE AMINOTRANSFERASE 23 U/L (12-78); ALBUMIN 2.2 G/DL (3.4-5.0); ALBUMIN/GLOBULIN RATIO 0.6 (1.1-1.5); ALKALINE PHOSPHATASE 97 IU/L (46-116); ANION GAP 6 (8-16); ASPARTATE AMINO TRANSFERASE 13 U/L (10-37); BILIRUBIN,TOTAL 0.3 MG/DL (0.1-1.0); BLOOD UREA NITROGEN 11 MG/DL (7-18); BUN/CREATININE RATIO 18.3 (10.0-20.0); CALCIUM 8.4 MG/DL (8.5-10.1); CHLORIDE 105 MMOL/L (99-107); GLUCOSE 98 MG/DL (70-104); POTASSIUM 4.5 MMOL/L (3.5-5.1); SODIUM 137 MMOL/L (135-145); TOTAL CARBON DIOXIDE 26.3 MMOL/L (24-32); eCRCL 78 ML/MIN; eGFR > 90 ML/MIN
[2025-03-24 06:00] VITALS: BP 144/99; PULSE 95; RESP 16; TEMP 97.8; O2SAT 94
[2025-03-24] MEDS ORDERED: VANCOMYCIN LEVEL IV ONE (06:30)
[2025-03-24] MEDS: nicotine 21mg patch - 24 hr TD SCH (09:57)
--- NOTE | 2025-03-24 15:50 | PROGRESS NOTE ---
Daily Progress Note Providers to CC Feels better today, less pain in the right foot and leg, good appetite ~ Central Line/PICC still needed: No Dee-Non Protocol Dee Indications Met/Not Met: F/C Indications Not Met Antibiotic Timeout Antibiotic Ordered?: Yes MRSA Education MRSA Education Provided to pt: Yes Subjective As above Objective Vital Signs Date Time Temp Pulse Resp B/P (MAP) Pulse Ox O2 Delivery O2 Flow Rate FiO2 03/24/25 12:50 18 03/24/25 06:00 97.8 95 144/99 (114) 94 Room Air Vital signs, stable ,afebrile. Pulse Oximetry reflects adequate oxygenation. BMI is General: well developed, well nourished. Awake , alert, and oriented x4, resting comfortably in the bed, in no acute distress . Skin: Warm, dry, no pallor, no rash or petechiae. HEENT: Atraumatic, normocephalic, EOMI, anicteric sclera B; pink conjunctiva; PERRLA, normal oropharynx, moist oral and nasal mucosa. Tympanic membrane , nose , throat clear. Neck: Trachea midline. Supple, full range of motion, no JVD, bruit , hepatojugular reflex , lymphadenopathy or masses, or other lesions Cardiac: Regular rhythm, regular rate no murmurs, rubs, or gallops. Normal S1 and S2, no S3 noticed. PMI is normal. Respiratory: Equal breath sounds bilaterally, no tachypnea; lungs clear to auscultation bilaterally, no wheezing ,rub or rales, or crackles. Chest wall is symmetric and without deformity. No signs of trauma. Chest wall is nontender. No signs of respiratory distress. Resonance is normal upon percussion bilaterally. Gastrointestinal: Abdomen symmetric, non-distended, soft, non-tender, normal bowel sounds x4 quadrant, normoactive, no hepatosplenomegaly , no masses , no bruit, no flank pain bilaterally. No voluntary guarding, rebound, or rigidity. No tenderness to percussion. No pulsatile masses. Equal femoral pulses. No Livingston's sign or McBurney point tenderness. Back; no CVA tenderness bilaterally, no deformities. Neck and back are without deformity as well. No tenderness noted on palpation of the spinous processes. Spinous processes are midline. Cervical, thoracic, and lumbar paraspinal muscles are not tender and are without spasm. Locally, a right foot dressing clean dry intact neurovascular grossly intact Musculoskeletal: Extremities, normal range of motion, non-tender, muscle strength 5/5 x 4. Negative Homans signs bilaterally on lower extremity. Distal pulses full symmetrical, no clubbing, cyanosis , edema. Neurological: Speech is clear, alert, and oriented x 4. No motor or sensory deficit, deep tendon reflexes normal, cerebellar intact. Cranial nerves II-XII intact. Psych: Alert and or appropriate, normal affect. Vascular: Good distal pulses, which are equal x4; capillary refill less than 2 seconds. Lymphatic, no lymphadenopathy. Result Diagram: 03/24/25 0451 03/24/25 0451 Coagulation Studies Laboratory Tests Test 03/21/25 16:12 Prothrombin Time 11.0 SECONDS (9.0-12.0) INR International Normalized Ratio 1.1 INR Activated Partial Thromboplast Time 26 SECONDS (22-32) Coagulation Comments Problem\Assessment\Plan Assessment A right foot cellulitis A right ankle cellulitis A right distal lower leg cellulitis A right distal lower leg blistering dermatitis Hypokalemia UTI Sepsis, resolved Chronic amphetamine abuse including currently Malnutrition BMI 17 Dehydration associated with Ketonuria, resolved Hypertension fair control Homelessness Plan IV fluids antibiotics Replace electrolytes PT evaluation and treatment Substance abuse navigator consult Wound care on board Nutrition consult Additional lab work pending I reconciled home medications DVT gastropathy prophylaxis addressed CT of the right lower leg completed orthopedic doctor consultation completed Tdap was updated in ER Sepsis Screening Reassessment Date: Mar 24, 2025 Date of Service: Mar 24, 2025 Billing Provider: JOSÉ GOMEZ MD Common Visit Codes: [id number] INP/OBS CARE(HIGH) JOSÉ GOMEZ MD Mar 24, 2025 15:50
[2025-03-24 18:00] VITALS: BP 157/111; PULSE 86; RESP 15; TEMP 97.9; O2SAT 99
[2025-03-24] MEDS: VANCOMYCIN LEVEL IV ONE (19:44)
[2025-03-24 20:00] VITALS: RESP 15; O2SAT 99
[2025-03-24 22:00] VITALS: BP 135/97; PULSE 60; RESP 16; TEMP 98; O2SAT 94
[2025-03-25 06:00] VITALS: BP 130/90; PULSE 74; RESP 16; TEMP 97.6; O2SAT 99
[2025-03-25 06:15] LABS: BASOPHILS # (AUTO) 0.1 X10'3 (0-0.2); BASOPHILS % (AUTO) 0.9 % (0-1); EOSINOPHILS # (AUTO) 0.3 X10'3 (0-0.9); HEMATOCRIT 37.3 % (35.0-45.0); HEMOGLOBIN 12.4 g/dl (12.0-16.0); LYMPHOCYTES % (AUTO) 26.7 % (21-51); MEAN CORPUSCULAR HEMOGLOBIN 27.9 PG (27.0-31.0); MEAN CORPUSCULAR HGB CONC 33.2 g/dL (33.0-36.5); MEAN CORPUSCULAR VOLUME 83.9 FL (78-98); MEAN PLATELET VOLUME 8.5 FL (7.4-10.4); MONOCYTES # (AUTO) 0.5 X10'3 (0-0.9); MONOCYTES % (AUTO) 6.7 % (2-12); NEUTROPHILS # (AUTO) 4.7 X10'3 (1.8-7.7); NEUTROPHILS % (AUTO) 61.7 % (42-75); PLATELET COUNT 311 X10'3 (140-440); RED BLOOD COUNT 4.45 X10'6 (4.20-5.60); RED CELL DISTRIBUTION WIDTH 14.2 % (11.5-14.5); WHITE BLOOD COUNT 7.6 X10'3 (4.5-11.0)
[2025-03-25 06:27] LABS: ALANINE AMINOTRANSFERASE 18 U/L (12-78); ALBUMIN 2.1 G/DL (3.4-5.0); ALBUMIN/GLOBULIN RATIO 0.6 (1.1-1.5); ALKALINE PHOSPHATASE 93 IU/L (46-116); ANION GAP 7 (8-16); ASPARTATE AMINO TRANSFERASE 9 U/L (10-37); BILIRUBIN,TOTAL 0.2 MG/DL (0.1-1.0); BLOOD UREA NITROGEN 13 MG/DL (7-18); BUN/CREATININE RATIO 22.8 (10.0-20.0); CALCIUM 8.8 MG/DL (8.5-10.1); CHLORIDE 107 MMOL/L (99-107); CREATININE 0.57 MG/DL (0.40-0.90); GLUCOSE 91 MG/DL (70-104); POTASSIUM 4.6 MMOL/L (3.5-5.1); SODIUM 140 MMOL/L (135-145); TOTAL CARBON DIOXIDE 26.4 MMOL/L (24-32); TOTAL PROTEIN 5.9 G/DL (6.4-8.2); eCRCL 82 ML/MIN; eGFR > 90 ML/MIN
[2025-03-25 08:00] VITALS: RESP 16; O2SAT 99
--- NOTE | 2025-03-25 08:58 | CONSULTATION REPORT ---
History of Present Illness Providers to CC ~ Reason for Admit\Admit Dx: r foot infection Refering MD: Dr Acuna History of Present Illness patient with large wound blister to the lateral right foot. churchill snot probe deep and images negative for osteomyelitis Allergies: Coded Allergies: No Known Allergies (Unverified , 03/21/25) Home Medications Home Medications Active Past Family History Family History: Patient reports no known family medical history. Physical Exam Last Vital Signs Recorded: Temperature: 97.6, Source: Oral, Heart Rate: 74, Respiratory Rate: 16, BP: 130/90, Pulse Oximetry: 99, Weight: 45.450 Physical Exam GEN: pt is NAD DERM: large superficial woumd to jose alberto lateral right foot vasc: pedal pulses palpable NEURO: sensation intact to the RLE MSK: +POP Results Diagram Lab Result Diagram: 03/25/25 0503/25/25 05 Assessment/Plan Additional Plan Pt seen and evaluated bedside debridement performed betadione wet to dry dressing recommend continue with current IV ABX and would recommend ID consult wound care orders placed - betadine wet to dry YESIKA BEST DPM Mar 25, 2025 08:58
[2025-03-25 10:03] VITALS: BP 126/91; PULSE 88; RESP 20; TEMP 98.1; O2SAT 100
[2025-03-25] MEDS ORDERED: CEPH250T PO (10:27)
[2025-03-25] MEDS ORDERED: HYDR50TA65 PO (10:27)
[2025-03-25] MEDS ORDERED: MELO-102 PO (10:27)
--- NOTE | 2025-03-25 15:49 | DISCHARGE SUMMARY ---
Discharge Summary Providers to No new complaint today, asking to be discharged home ~ Discharge Summary Assessment A right foot cellulitis A right ankle cellulitis A right distal lower leg cellulitis A right distal lower leg blistering dermatitis Hypokalemia UTI Sepsis Chronic amphetamine abuse including currently Malnutrition BMI 17 Dehydration associated with Ketonuria Hypertension fair control Homelessness Admission Diagnosis: R foor cellulitis; sepsis Admission Diagnosis Comment: A right foot cellulitis A right ankle cellulitis A right distal lower leg cellulitis A right distal lower leg blistering dermatitis Hypokalemia UTI Sepsis Chronic amphetamine abuse including currently Malnutrition BMI 17 Dehydration associated with Ketonuria Hypertension fair control Homelessness Hospital Course DATE OF ADMISSION: March 21, 2025 DATE OF DISCHARGE: March 25, 2025 Discharge Diagnosis\Comment: A right foot cellulitis A right ankle cellulitis A right distal lower leg cellulitis A right distal lower leg blistering dermatitis Hypokalemia UTI Sepsis Chronic amphetamine abuse including currently Malnutrition BMI 17 Dehydration associated with Ketonuria Hypertension fair control Homelessness Operations\Procedures: Debridement of the right ankle bullous dermatitis Consultants: Financial Analysis Consultant Complications: None Condition on DC: Stable Discharge Summary: This 54-year-old female , with history of multiple medical problems including hypertension, chronic amphetamine and tobacco abuse including currently, malnutrition BMI 17, UTI, dehydration associated with ketonuria, presented today to emergency department chief complaint a right foot and right ankle redness swelling blistering; in addition this is the patient who presents with a painful blister to the lateral aspect of her right foot and ankle as well as a wound to the posterior aspect of her right ankle, patient reports that it is been present for several days and getting larger. Patient reports the bottom of her foot has been hurting for the last week she believes she may have stepped on something a week ago. Patient reports no fevers. Patient reports that she has been sleeping a lot in the last two days as she is detoxing from methamphetamine. In emergency department patient was evaluated medical provider, was diagnosed with cellulitis, sepsis, right foot ankle and lower leg, and decision was made to admit patient for further evaluation and treatment. No additional complaint or concern. After admission patient was extensively evaluated and treated, today she is feeling fine, asking to be discharged for family reasons and because she likes to go outside to smoke. She will be discharged in stable condition, recommended to continue inpatient treatment patient refused risk of severe complications explained, patient understood, she will be discharged in stable condition, medication reconciled, follow-up PCP in wound care in the morning, return to emergency department if condition worsens, today on physical exam Vital signs, stable ,afebrile. Pulse Oximetry reflects adequate oxygenation. General: well developed, well nourished. Awake , alert, and oriented x4, resting comfortably in the bed, in no acute distress . Skin: Warm, dry, no pallor, no rash or petechiae. HEENT: Atraumatic, normocephalic, EOMI, anicteric sclera B; pink conjunctiva; PERRLA, normal oropharynx, moist oral and nasal mucosa. Tympanic membrane , nose , throat clear. Neck: Trachea midline. Supple, full range of motion, no JVD, bruit , hepatojugular reflex , lymphadenopathy or masses, or other lesions Cardiac: Regular rhythm, regular rate no murmurs, rubs, or gallops. Normal S1 and S2, no S3 noticed. PMI is normal. Respiratory: Equal breath sounds bilaterally, no tachypnea; lungs clear to auscultation bilaterally, no wheezing ,rub or rales, or crackles. Chest wall is symmetric and without deformity. No signs of trauma. Chest wall is nontender. No signs of respiratory distress. Resonance is normal upon percussion bilaterally. Gastrointestinal: Abdomen symmetric, non-distended, soft, non-tender, normal bowel sounds x4 quadrant, normoactive, no hepatosplenomegaly , no masses , no bruit, no flank pain bilaterally. No voluntary guarding, rebound, or rigidity. No tenderness to percussion. No pulsatile masses. Equal femoral pulses. No Livingston's sign or McBurney point tenderness. Back; no CVA tenderness bilaterally, no deformities. Neck and back are without deformity as well. No tenderness noted on palpation of the spinous processes. Spinous processes are midline. Cervical, thoracic, and lumbar paraspinal muscles are not tender and are without spasm. Locally, a right ankle-foot dressing clean dry intact neurologically grossly intact Musculoskeletal: Extremities, normal range of motion, non-tender, muscle strength 5/5 x 4. Negative Homans signs bilaterally on lower extremity. Distal pulses full symmetrical, no clubbing, cyanosis , edema. Neurological: Speech is clear, alert, and oriented x 4. No motor or sensory deficit, deep tendon reflexes normal, cerebellar intact. Cranial nerves II-XII intact. Psych: Alert and or appropriate, normal affect. Vascular: Good distal pulses, which are equal x4; capillary refill less than 2 seconds. Lymphatic, no lymphadenopathy. *Problems/Diagnosis: (1) Cellulitis (2) Wound cellulitis Status: Acute Total Time Spent on D/C: > 30 Minutes Date of Service: Mar 25, 2025 Billing Provider: JOSÉ GOMEZ MD Common Visit Codes: [id number]-CZV/[id number] DISCH DAY >30min Problem Qualifiers (1) Cellulitis: JOSÉ GOMEZ MD Mar 25, 2025 15:49
[2025-03-25] MEDS ORDERED: VANCOMYCIN/WATER FOR INJ (PEG) 1.5GM/300 ML IVPB IV SCH (20:00)
[2025-03-27] MEDS ORDERED: VANCOMYCIN LEVEL IV ONE (07:30)
== END 2025-03-25 11:05 | disposition home or self-care (01) | DRG 720 ==
LOC: ER 13:53 → ED HOLD 18:23 → ORTHO 4S 22:45
PROVIDERS: ADMIT Family Medicine; ATTEND Family Medicine
PROC: BQ2R1ZZ Computerized Tomography (CT Scan) of Right Lower Extremity using Low Osmolar Contrast (ICD-10-PCS; principal; 2025-03-21)
DX: A41.9 Sepsis, unspecified organism (principal); E46 Unspecified protein-calorie malnutrition; L03.115 Cellulitis of right lower limb; N39.0 Urinary tract infection, site not specified; E86.0 Dehydration; I10 Essential (primary) hypertension; F15.10 Other stimulant abuse, uncomplicated; E87.6 Hypokalemia; L30.8 Other specified dermatitis; Z59.00 Homelessness unspecified; Z68.1 Body mass index [BMI] 19.9 or less, adult
CPT/HCPCS: 36415; 71045; 73630; 73701; 80048; 80053; 80061; 80202; 80305; 81001; 81025; 83036; 83605; 83735; 83880; 84100; 84145; 85025; 85610; 85730; 87040; 87077; 87081; 87088; 87186; 90472; 90715; 93005; 96365; 97161; 97530; 99285; A6223; A6253; A6258; A6446; A6449; G0378; J0696; J1171; J1200; J1885; J2060; J2405; J3370; J3480; J7030; Q0163; Q9967